=== PATIENT | male | born 2000 | race Caucasian/White ===

== ENCOUNTER 2020-02-13 14:28 | Emergency (ER) | payer BC ==
[~2020-02-13] VITALS: Ht 180.3 cm; Wt 63.5 kg
[2020-02-13] MEDS ORDERED: BIPOLAR MED (14:42)
[2020-02-13 15:06] LABS: ABSOLUTE BASOPHILS 0.1 thou/uL (0.0-0.2); ABSOLUTE EOSINOPHILS 0.3 thou/uL (0.0-0.7); ABSOLUTE LYMPHOCYTES 1.5 thou/uL (0.8-5.3); ABSOLUTE MONOCYTES 0.7 thou/uL (0.0-1.2); ABSOLUTE NEUTROPHILS 3.2 thou/uL (1.6-8.1); BASOPHILS 0.9 %; EOSINOPHILS 5.2 %; HEMATOCRIT 43.6 % (42.0-52.0); HEMOGLOBIN 15.6 gm/dL (14.0-18.0); LYMPHOCYTES 25.7 %; MCH 32.5 pg (26.0-34.0); MCHC 35.8 g/dL (28.0-37.0); MCV 90.6 fL (80.0-100.0); MPV 7.9 fl. (7.2-11.1); NUCLEATED RBCS 0 /100WBC; PLATELET COUNT* 223 thou/uL (150-400); POLYS 56.2 %; RBC 4.82 mil/uL (4.50-6.00); RDW-CV 12.5 % (10.5-14.5); WBC 5.8 thou/uL (4.0-11.0)
[2020-02-13 15:07] LABS: URINE BILIRUBIN NEGATIVE (Negative); URINE BLOOD NEGATIVE (Negative); URINE CLARITY CLEAR; URINE COLOR YELLOW; URINE GLUCOSE-RANDOM NEGATIVE (Negative); URINE KETONES NEGATIVE (Negative); URINE LEUKOCYTES-REFLEX NEGATIVE (Negative); URINE NITRITE-REFLEX NEGATIVE (Negative); URINE PROTEIN NEGATIVE (Negative); URINE SPECIFIC GRAVITY 1.015 (1.005-1.030); URINE UROBILINOGEN 0.2 E.U./dl (0.2-1.0)
[2020-02-13 15:14] LABS: CALCIUM 8.8 mg/dL (8.5-10.1); POTASSIUM 4.2 mmol/L (3.5-5.1)
[2020-02-13 15:15] LABS: AMP/METHAMP Negative (Negative); BARBITURATES Negative (Negative); BENZODIAZEPINES Negative (Negative); COCAINE Negative (Negative); METHADONE Negative (Negative); OPIATES Negative (Negative); PCP Negative (Negative); THC POSITIVE (Negative)
[2020-02-13 15:19] LABS: ALBUMIN 4.3 g/dL (3.4-5.0); TOTAL BILIRUBIN 2.6 mg/dL (<0.1-1.0); TOTAL PROTEIN 6.9 g/dL (6.4-8.2)
[2020-02-13 15:27] LABS: ALCOHOL < 10 mg/dL (<10)
[2020-02-13 15:28] LABS: ACETAMINOPHEN < 2 ug/mL (10-30); SALICYLATE < 2.8 mg/dL (2.8-20.0)
[2020-02-13] MEDS ORDERED: KEFLEX500 M1 PO (16:08)
[2020-02-13 17:16] VITALS: BP 133/79
== END 2020-02-13 17:18 | disposition home or self-care (01) ==
LOC: M.ERS 14:28
PROVIDERS: Emergency Medicine Emergency Medical Services
DX: S51.812A Laceration without foreign body of left forearm, initial encounter (principal); F17.210 Nicotine dependence, cigarettes, uncomplicated; X78.8XXA Intentional self-harm by other sharp object, initial encounter; Y93.89 Activity, other specified; Y92.89 Other specified places as the place of occurrence of the external cause; Y99.8 Other external cause status